=== PATIENT | male | born 1985 | race Caucasian/White ===

== ENCOUNTER 2018-09-28 02:46 | Inpatient (IN) ==
[2018-09-28] MEDS ORDERED: PROPOFOL IV EMULSION 10 MG/ML 100 ML VIAL IV ONE (06:22)
--- NOTE | 2018-09-28 06:29 | History & Physical Report ---
Date of Service September 28, 2018 Assessment & Plan (1) Overdose: Intentional overdose on Seroquel with EtOH abuse. Patient intubated for airway protection at OSH. Presently following some commands but overall uncooperative. EKG from OSH with sinus tachycardia, narrow QRS complexes, markedly prolonged QT interval at 663. Remainder of toxicology workup negative. * Continue supportive care, mechanical ventilation * Avoid QT prolonging medications * EKG * Psychiatry consultation when patient is extubated and interactive * Present on Admission?: Yes (2) ETOH abuse: Uncertain how much patient drinks. EtOH level 143 at OSH - reportedly consumed 10 beers prior to admission * Monitor for evidence of EtOH withdrawal * Present on Admission?: Yes (3) Anxiety: Per outpatient records patient is taking Celexa 40mg daily and Seroquel. * Hold these medications for now * Monitor EKG findings * Psychiatry consultation as above * (4) Depression: Plan as above. Holding Celexa in setting of acute overdose F/E/N - NSS at 125mL/hr x 1 liter, monitor electrolytes and replete as needed, NPO for now Ppx - Protonix, SCDs Code - Full Dispo - MICU History of Present Illness History obtained through documentation review. Patient unable to provide history. No family at bedside. Patient is a 33yo male with history of depression, anxiety and EtOH abuse. He presented to [facility] unresponsive s/p intentional overdose when he took a "handful of seroquel" after drinking 10 beers. He was transported via ambulance to [facility]. Vomit x 2 episodes en route to the hospital. Upon arrival to [facility] he was found to have pinpoint pupils, sonorous respirations and minimally responsive only to deep stimuli. Periods of apnea noted. He was intubated for airway protection. Transferred to [facility]. Medications administered at OSH: Narcan 0.4mg, Flumazenil, RSI, Propofol, Zosyn , Solumedrol 125mg, Sodium bicarbonate OSH Labs: WBC=9.1, Hg=14.1, Hct=40.3, Mlr=209 Nm=482 K=3.1 Uf=209 HCO3=21 BUN=9 Cr=1.2 PT=10.7 PTT=26 INR=1.09 Utox negative NxYF=485 Salicylate=3.[address] Head: No acute intracranial abnormality. CXR - ETT in place EKG=SInus tachycardia 120bpm, JB=827, QRS=80, JDl=170, no acute ischemia Past Med/Surg History Medical History Alcohol abuse Anxiety Depression Social History Current Living Situation: Other Current Living Situation Comment: unknown, no family present. pt intubated with sedation Smoking Status: Unknown if ever smoked Hx Alcohol Use: Yes Preferred Language: Unknown Review of Systems Unobtainable due to endotracheal tube Physical Exam 2 Physical Exam: General: patient intubated, sedated, following some commands, moving all extremities Skin: warm, dry, intact, no rashes or lesions HEENT: NC/AT, PERRL, anicteric sclera, conjunctiva without injection, external ear normal to inspection and nontender, nares patent, moist mucus membranes, dentition intact, ETT and OGT in place, no oropharyngeal lesions, neck supple, trachea midline, no LAD, no thyromegaly, no JVD Heart: +S1/S2, regular, tachycardic, no m/r/g Lungs: equal air entry bilaterally, no rales/rhonchi/wheezes Abd: +BS, soft, NT/ND, no masses/organomegaly/ascites Ext: warm, 2+ pulses in UE/LE bilaterally, no clubbing/cyanosis or edema Neuro: intubated, sedated, moving all extremities Results & Data Laboratory Results Ordered Diagnostic Findings CXR ordered ECG Additional Comments: EKG ordered Code Status & VTE Plan Code Status full VTE Prophylaxis Plan VTE Prophylaxis will be ordered: Yes Critical Care Time 45 Critical Care Time: Yes _ (1) Overdose Encounter type: initial encounter Injury intent: intentional self-harm Qualified Code(s): T50.902A - Poisoning by unspecified drugs, medicaments and biological substances, intentional self-harm, initial encounter (2) Depression Depression Type: major depressive disorder Major depression recurrence: recurrent Active/Remission status: currently active
[2018-09-28] MEDS ORDERED: ICU PROTOCOL FOR HYPERGLYCEMIA PRN (06:33)
[2018-09-28] MEDS ORDERED: fentaNYL citrate 100 MCG/2 ML VIAL ONE (06:38)
[2018-09-28] MEDS ORDERED: SODIUM CHLORIDE 0.9% 1000ML 1,000 ML IV SCH (06:45)
[2018-09-28] MEDS ORDERED: PROPOFOL 1,000 MG/100 ML VIAL IV SCH (07:00)
[2018-09-28] MEDS ORDERED: PATIENT'S HEIGHT AND/OR WEIGHT NEEDED SCH (07:00)
--- NOTE | 2018-09-28 07:17 | XRay Report ---
XR chest 1V portable CLINICAL HISTORY: f/u COMPARISON STUDY: No previous studies for comparison. FINDINGS: Endotracheal tube 2.5 cm above the luanne. Parenchymal infiltrate left base. Lungs otherwis e appear clear. Nasogastric tube within the stomach. IMPRESSION: 1. Endotracheal tube 2.5 cm above the luanne. 2. Infiltrate left base. 3. Nasogastric tube within the stomach. The above report was generated using voice recognition software. It may contain grammatical, syntax or spelling errors. Electronically signed by: Flex Lee M.D. 09/28/2018 7:16 AM
[2018-09-28 07:22] LABS: Hemoglobin 12.5 g/dL (14.0-18.0); Immature Granulocytes # (auto) 0.01 K/uL (0.00-0.02); Immature Granulocytes % (auto) 0.1 %; Lymphocytes # (auto) 0.45 K/uL (1.2-3.4); Lymphocytes % (auto) 5.8 %; Mean Corpuscular Hgb Conc 34.7 g/dL (32-36); Mean Corpuscular Volume 91.6 fL (80-100); Mean Platelet Volume 9.5 fL (7.4-10.4); Monocytes # (auto) 0.12 K/uL (0.11-0.59); Monocytes % (auto) 1.5 %; Neutrophils # (auto) 7.19 K/uL (1.4-6.5); Neutrophils % (auto) 92.6 %; Platelet Count 221 K/uL (130-400); RDW Coefficient of Variation 12.3 % (11.5-14.5); RDW Standard Deviation 41.8 fL (36.4-46.3); Red Blood Count 3.93 M/uL (4.7-6.1); White Blood Count 7.77 K/uL (4.8-10.8)
[2018-09-28 07:57] LABS: BUN Creatinine Ratio 10.7 (10-20); Calcium 8.2 mg/dl (8.5-10.1); Creatinine Clr Calc Pharmacy 142.5 ml/min; Est GFR (African American) 120.7; Est GFR (Non-African American) 104.2; Magnesium 2.1 mg/dl (1.8-2.4); Potassium 3.8 mmol/L (3.5-5.1)
[2018-09-28 07:58] LABS: Phosphorus 2.6 mg/dl (2.5-4.9)
[2018-09-28 09:12] LABS: Base Excess VBG 0.3 mEq/L; Oxygen Saturation VBG 97.2 %; pH VBG 7.4 (7.36-7.41)
[2018-09-28] MEDS ORDERED: INFLUENZA VIRUS QUAD VACCINE 0.5 ML SYR IM ONE (09:15)
[2018-09-28] MEDS ORDERED: INFLUENZA ADMINISTRATION CHARGE ONE (09:15)
--- NOTE | 2018-09-28 10:28 | Critical Care Consultation ---
Date of Consultation September 28, 2018 Supervising Physician Co-Signing Physician Notes Reason Critically Ill: 33-year-old male with intentional drug overdose in the setting of acute alcohol intoxication and intubation for combativeness PLAN: Neuro: Intentional drug overdose -Mental health consult Resp: Successful extubation this morning CV: Tachycardia Prolonged QTC -Resolved Fluids/Renal: Discontinuing supplemental fluids ID: Afebrile GI/Nutrition: Regular diet Heme: Low risk for DVT -Ambulate around room, sitter DVT prophylaxis: Ambulatory Endocrine: ICU hyperglycemia protocol Vascular access: Peripheral IVs Code Status: Full code Patient is medically cleared for evaluation by mental health I reviewed the outpatient medical record, salicylates were negative Tylenol is negative there is no high gap acidosis, patient reportedly took overdose of Seroquel however patient is alert and oriented and shows no ill effects of Seroquel at this time. Will repeat EKG as QTC was mildly prolonged. Update: Patient is medically cleared at 9:30 PM. I have discussed this with Dr. Sykes, patient is being involuntarily held on 302 for further psychiatric evaluation. During my evaluation the patient appears to be minimizing his alcohol consumption as well as the intentional drug overdose he reports that it was in an attempt to help him sleep however given the significant prolongation of the QTC that this is not due from 3-4 extra tablets of his Seroquel. He exhibits some high risk features of impulsivity which are concerning to me and I agree that the patient requires further evaluation by mental health. History of Present Illness Attending Physician: Jaswinder Yadav History is originally obtained from prior records patient is a 33-year-old male who was transferred from [facility] for an intentional overdose on Seroquel while he was intoxicated. He was brought to the emergency department and was combative requiring intubation to facilitate workup. They contacted poison control he was found to have a prolonged QTC, his alcohol level is elevated his salicylates and Tylenol were negative. He was transferred for further management. Following extubation I was able to obtain additional history from the patient and he reports that he recently finished alcohol rehabilitation however he has relapsed and was drinking on renato as well as [place] ' Renato and then drank for the last 3 days. He was intoxicated had conflict with his girlfriend and reportedly took 3 or 4 extra sleeping pills and this concerned his girlfriend that prompted her to take the patient to the emergency room for further evaluation. The patient has a prior history of suicide attempt in a previous relationship for which he reportedly sliced his wrist. He denies any other significant medical history Allergies Allergy/AdvReac Type Severity Reaction Status Date / Time No Known Allergies Allergy Unverified 09/28/18 10:30 Home Medications Home Medications Medication Instructions Recorded Confirmed Type citalopram 20 mg PO BID 09/28/18 09/28/18 History clonidine HCl 0.1 mg PO BID 09/28/18 09/28/18 History quetiapine [Seroquel] 400 mg PO HS 09/28/18 09/28/18 History Patient History Medical History Alcohol abuse Anxiety Depression Social History Current Living Situation: Other Current Living Situation Comment: unknown, no family present. pt intubated with sedation Smoking Status: Unknown if ever smoked Hx Alcohol Use: Yes Communication Ability: Effective Review of Systems Unable to obtain secondary to intubation Physical Exam 2 Vital Signs (Past 24 Hours): Last Vital Signs Temp 36.7 C 09/28/18 06:33 Pulse 87 09/28/18 07:20 Resp 12 09/28/18 09:20 BP 122/77 09/28/18 06:33 Pulse Ox 98 09/28/18 07:20 General: A obese young male who appears his stated age I have reviewed the recorded vital signs Neurological: RASS score: -2, Moves all 4 extremities, Psychological: Glascow Coma Scale: Eyes: 3 voice, Verbal 1T, Motor 5, Total 9T not following complex commands Eyes: Pupils are equal, round and reactive to light, anicteric sclera. Symmetrical lids. HENT: Oropharynx Clear/ Oropharynx obscured by endotracheal tube, dry mucous membranes. Neck: Supple. Symmetric. trachea midline. No thyromegaly. Cardiovascular: Normal peripheral perfusion. Distal pulses and capillary refill intact. No JVD. Respiratory: Respirations are non-labored, no accessory muscle use. Breath sounds are equal. Gastrointestinal: Soft. Non-distended. Lymphatic: No cervical lymphadenopathy. Musculoskeletal: No deformity. No clubbing nor cyanosis. Results & Data Laboratory Results 09/28/18 09/28/18 09/28/18 Range/Units 12:30 10:30 09:01 WBC (4.8-10.8) K/uL RBC (4.7-6.1) M/uL Hgb (14.0-18.0) g/dL Hct (42-52) % MCV (80-100) fL MCH (25-34) pg MCHC (32-36) g/dL RDW Std Deviation (36.4-46.3) fL RDW Coeff of Lizzy (11.5-14.5) % Plt Count (130-400) K/uL MPV (7.4-10.4) fL Immature Gran % (Auto) % Neut % (Auto) % Lymph % (Auto) % [place] % (Auto) % Eos % (Auto) % Baso % (Auto) % Immature Gran # (Auto) (0.00-0.02) K/uL Neut # (Auto) (1.4-6.5) K/uL Lymph # (Auto) (1.2-3.4) K/uL [place] # (Auto) (0.11-0.59) K/uL Eos # (Auto) (0-0.5) K/uL Baso # (Auto) (0-0.2) K/uL VBG pH 7.40 (7.36-7.41) VBG pCO2 42 (38-50) mmHg VBG pO2 94 mmHg VBG HCO3 25 mmol/L VBG O2 Saturation 97.2 % VBG Base Excess 0.3 mEq/L Barometric Pressure 733.0 mm/Hg Sodium (136-145) mmol/L Potassium (3.5-5.1) mmol/L Chloride (98-107) mmol/L Carbon Dioxide (21-32) mmol/L Anion Gap (3-11) BUN (7-18) mg/dl Creatinine (0.6-1.4) mg/dl Est Cr Clr Drug Dosing ml/min Est GFR ( Amer) Est GFR (Non-Af Amer) BUN/Creatinine Ratio (10-20) Glucose (70-99) mg/dl POC Glucose 231 H (70-99) Calcium (8.5-10.1) mg/dl Phosphorus (2.5-4.9) mg/dl Magnesium (1.8-2.4) mg/dl Nasal Screen MRSA (PCR) Uninterpretable (Negative) 09/28/18 09/28/18 Range/Units 07:15 07:15 WBC 7.77 (4.8-10.8) K/uL RBC 3.93 L (4.7-6.1) M/uL Hgb 12.5 L (14.0-18.0) g/dL Hct 36.0 L (42-52) % MCV 91.6 (80-100) fL MCH 31.8 (25-34) pg MCHC 34.7 (32-36) g/dL RDW Std Deviation 41.8 (36.4-46.3) fL RDW Coeff of Lizzy 12.3 (11.5-14.5) % Plt Count 221 (130-400) K/uL MPV 9.5 (7.4-10.4) fL Immature Gran % (Auto) 0.1 % Neut % (Auto) 92.6 % Lymph % (Auto) 5.8 % [place] % (Auto) 1.5 % Eos % (Auto) 0.0 % Baso % (Auto) 0.0 % Immature Gran # (Auto) 0.01 (0.00-0.02) K/uL Neut # (Auto) 7.19 H (1.4-6.5) K/uL Lymph # (Auto) 0.45 L (1.2-3.4) K/uL [place] # (Auto) 0.12 (0.11-0.59) K/uL Eos # (Auto) 0.00 (0-0.5) K/uL Baso # (Auto) 0.00 (0-0.2) K/uL VBG pH (7.36-7.41) VBG pCO2 (38-50) mmHg VBG pO2 mmHg VBG HCO3 mmol/L VBG O2 Saturation % VBG Base Excess mEq/L Barometric Pressure mm/Hg Sodium 139 (136-145) mmol/L Potassium 3.8 (3.5-5.1) mmol/L Chloride 109 H (98-107) mmol/L Carbon Dioxide 22 (21-32) mmol/L Anion Gap 8.0 (3-11) BUN 10 (7-18) mg/dl Creatinine 0.96 (0.6-1.4) mg/dl Est Cr Clr Drug Dosing 142.5 ml/min Est GFR ( Amer) 120.7 Est GFR (Non-Af Amer) 104.2 BUN/Creatinine Ratio 10.7 (10-20) Glucose 132 H (70-99) mg/dl POC Glucose (70-99) Calcium 8.2 L (8.5-10.1) mg/dl Phosphorus 2.6 (2.5-4.9) mg/dl Magnesium 2.1 (1.8-2.4) mg/dl Nasal Screen MRSA (PCR) (Negative) ECG Additional Comments: Multiple EKGs were reviewed his QTC continued to decrease, the noted increase is artifactual secondary to increased rate which were due to periods of anxiety. Particularly this occurred when he was confronted with being petitioned under the 302 statute. Eventually an EKG was obtained with a lower heart rate and the QTC was 452 and the patient was medically cleared.
[2018-09-28] MEDS ORDERED: PANTOprazole 40 MG in SYRINGE 0 ML IV SCH (11:00)
[2018-09-28] MEDS: PATIENT'S ALLERGY INFO NEEDS ENTERED SCH ×3 (11:13→14:39)
[2018-09-28] MEDS ORDERED: LORazepam 2 MG/4 ML VIAL IV STA (14:32)
[2018-09-28] MEDS ORDERED: LORazepam 2 MG/4 ML VIAL ONE (14:33)
--- NOTE | 2018-09-28 14:36 | Psychiatric Consultation ---
Date of Consultation September 28, 2018 Impression / Recommendations Impression 33 yo CM with h/o Bipolar d/o and anxiety. Per chart he was admitted to ICU, intubated and sedated, s/p intentional overdose on seroquel while intoxicated on alcohol. This was reported to be in the context of an arguement with his girlfriend on the night of 09/27/18. Patient was irritable, evasive and seemed to be minimizing his OD attempt. He refused to cooperate and agree to collateral from his girlfriend. He has a history of impulsive behavior and attempting suicide after a break up in the past. Given his QTC of 633 on admission elevated HR and needing intubation to protect airways, likely he took more than a few pills of seroquel. Patient ws intoxicated as well and showing poor insight and judgement. Patient demanded to leave hospital and remains a risk of harm to himself and others and will file 302 petition. Discussed case with Dr. Hendricks who will fill out section of petition. He will need psychiatric admission once medically cleared. Inventory Assets Strengths: in a relationship, access to care Needs: meds, therapy, inpatient admission Risk Factors Assessment Male: Yes : Yes Health Problems: No Mental Health Diagnoses: Yes Substance Use Disorders: Yes Previous Attempt: Yes Previous Psychiatric Hospitalization: Yes Protective Factors Assessment Alevism Beliefs: No : No Responsible for Young Children: Yes CPT Code 43485 Psych History Chief Complaint "I'm fine" History of Present Illness 33 yo CM with h/o Bipolar d/o and anxiety. Per chart he was admitted to ICU, intubated and sedated, s/p intentional overdose on seroquel while intoxicated on alcohol. This was reported to be in the context of an arguement with his girlfriend on the night of 09/27/18. Upon evaluation, patient reports "I took a bunch of seroquels, maybe 4" and states she doesn't remember that he was suicidal. He states he got into an arguement with his girlfriend and left the house, states he had been drinking a lot this past couple days, and came back to the house and was took seroquel pills. He became irritable and stated "stop asking me these questions, I'm trying to be honest and I don't remember". Asked patient to allow collateral from girlfriend and he states "no, I don't want you talking to her". He picked up the phone and tried calling her a few times during the conversation. He stated he wanted to leave. Patient was irritable and evasive during the interview. Below autopopulated from chart: History obtained through documentation review. Patient unable to provide history. No family at bedside. Patient is a 33yo male with history of depression, anxiety and EtOH abuse. He presented to [facility] unresponsive s/p intentional overdose when he took a "handful of seroquel" after drinking 10 beers. He was transported via ambulance to [facility]. Vomit x 2 episodes en route to the hospital. Upon arrival to [facility] he was found to have pinpoint pupils, sonorous respirations and minimally responsive only to deep stimuli. Periods of apnea noted. He was intubated for airway protection. Transferred to [facility]. Medications administered at OSH: Narcan 0.4mg, Flumazenil, RSI, Propofol, Zosyn , Solumedrol 125mg, Sodium bicarbonate OSH Labs: WBC=9.1, Hg=14.1, Hct=40.3, Msx=826 Bq=735 K=3.1 Vb=903 HCO3=21 BUN=9 Cr=1.2 PT=10.7 PTT=26 INR=1.09 Utox negative JwUF=071 Salicylate=3.[address] Head: No acute intracranial abnormality. CXR - ETT in place EKG=SInus tachycardia 120bpm, LU=300, QRS=80, TLo=252, no acute ischemia Past Psychiatric History Previous Psych History: bipolar d/o Current Psychiatric Diagnosis: bipolar disorder Previous Psych Admissions: yes History of Previous Suicide Attempt: Yes Allergies Allergy/AdvReac Type Severity Reaction Status Date / Time No Known Allergies Allergy Unverified 09/28/18 10:30 Home Medications Home Medications Medication Instructions Recorded Confirmed Type citalopram 20 mg PO BID 09/28/18 09/28/18 History clonidine HCl 0.1 mg PO BID 09/28/18 09/28/18 History quetiapine [Seroquel] 400 mg PO HS 09/28/18 09/28/18 History Patient History Medical History Alcohol abuse Anxiety Depression Social History Current Living Situation: Other Current Living Situation Comment: unknown, no family present. pt intubated with sedation Smoking Status: Unknown if ever smoked Hx Alcohol Use: Yes Communication Ability: Effective Physical Exam Psychiatric A+Ox3, euthymic affect Apperance: appropriately dressed Eye Contact: + fair eye contact Motor Behavior: no abnormal motor movements Speech: normal rate/rhythm/volume of speech Affect: + irritable affect and mood congruent with affect Thought Process: goal directed thought process Thought Content: not paranoid and no delusions Suicidal Thoughts: denies suicidal thoughts Homicidal Thoughts: denies homicidal thoughts Hallucinations: no auditory hallucinations and no visual hallucinations Cognition: attention grossly intact Estimated Intelligence: average estimated intelligence Insight: + poor insight Judgement: + poor judgement Vital Signs (Past 24 Hours) Last Vital Signs Temp 36.9 C 09/28/18 12:02 Pulse 124 H 09/28/18 13:00 Resp 19 09/28/18 13:00 BP 127/76 09/28/18 13:00 Pulse Ox 95 09/28/18 13:00
[2018-09-28] MEDS ORDERED: NICOTINE 21 MG/24 HR TDSY TD SCH (15:00)
[2018-09-28] MEDS ORDERED: CITALOPRAM 20 MG TAB PO ONE (17:00)
[2018-09-28] MEDS ORDERED: PROPRANOLOL HCL 10 MG TAB PO ONE (17:00)
--- NOTE | 2018-09-28 21:53 | Discharge Summary ---
Date of Service September 28, 2018 Admission HPI Per Admitting Provider 33 yo CM with h/o Bipolar d/o and anxiety. Per chart he was admitted to ICU, intubated and sedated, s/p intentional overdose on seroquel while intoxicated on alcohol. This was reported to be in the context of an arguement with his girlfriend on the night of 09/27/18. Upon evaluation, patient reports "I took a bunch of seroquels, maybe 4" and states she doesn't remember that he was suicidal. He states he got into an arguement with his girlfriend and left the house, states he had been drinking a lot this past couple days, and came back to the house and was took seroquel pills. He became irritable and stated "stop asking me these questions, I'm trying to be honest and I don't remember". Asked patient to allow collateral from girlfriend and he states "no, I don't want you talking to her". He picked up the phone and tried calling her a few times during the conversation. He stated he wanted to leave. Patient was irritable and evasive during the interview. Below autopopulated from chart: History obtained through documentation review. Patient unable to provide history. No family at bedside. Patient is a 33yo male with history of depression, anxiety and EtOH abuse. He presented to [facility] unresponsive s/p intentional overdose when he took a "handful of seroquel" after drinking 10 beers. He was transported via ambulance to [facility]. Vomit x 2 episodes en route to the hospital. Upon arrival to [facility] he was found to have pinpoint pupils, sonorous respirations and minimally responsive only to deep stimuli. Periods of apnea noted. He was intubated for airway protection. Transferred to [facility]. Medications administered at OSH: Narcan 0.4mg, Flumazenil, RSI, Propofol, Zosyn , Solumedrol 125mg, Sodium bicarbonate OSH Labs: WBC=9.1, Hg=14.1, Hct=40.3, Ilr=755 Wn=763 K=3.1 Ym=937 HCO3=21 BUN=9 Cr=1.2 PT=10.7 PTT=26 INR=1.09 Utox negative FfXZ=352 Salicylate=3.[address] Head: No acute intracranial abnormality. CXR - ETT in place EKG=SInus tachycardia 120bpm, FW=872, QRS=80, XNj=977, no acute ischemia Discharge Data Consultations 09/28/18 06:33 Consult Case Management - Discharge Planning Routine Consult Gem Technician Routine 09/28/18 10:29 Consult Psychiatry Routine Hospital Course (1) Overdose: Initial Seroquel overdose with QTC prolongation which has since been corrected. Evaluated from a psychiatric standpoint and at this point is medically cleared for discharge from hospital standpoint to be admitted to 3 S. (2) ETOH abuse: No overt symptoms of withdrawal at this point. (3) Anxiety: To be discussed on 3 S. admission. (4) Depression: To be discussed on 3 S. admission. Discharge Instructions To be taken directly to 3 S. for involuntary admission. Supervising Physician Co-Signing Physician Notes I have personally evaluated and examined this patient. I agree with assessment and plan of Madelyn Burrell PA-C.
[2018-09-29] MEDS ORDERED: CITALOPRAM 20 MG TAB PO SCH (09:00)
--- NOTE | 2018-10-05 11:12 | Discharge Summary ---
Date of Service September 28, 2018 Admission HPI Per Admitting Provider 33 yo CM with h/o Bipolar d/o and anxiety. Per chart he was admitted to ICU, intubated and sedated, s/p intentional overdose on seroquel while intoxicated on alcohol. This was reported to be in the context of an arguement with his girlfriend on the night of 09/27/18. Upon evaluation, patient reports "I took a bunch of seroquels, maybe 4" and states she doesn't remember that he was suicidal. He states he got into an arguement with his girlfriend and left the house, states he had been drinking a lot this past couple days, and came back to the house and was took seroquel pills. He became irritable and stated "stop asking me these questions, I'm trying to be honest and I don't remember". Asked patient to allow collateral from girlfriend and he states "no, I don't want you talking to her". He picked up the phone and tried calling her a few times during the conversation. He stated he wanted to leave. Patient was irritable and evasive during the interview. Below autopopulated from chart: History obtained through documentation review. Patient unable to provide history. No family at bedside. Patient is a 33yo male with history of depression, anxiety and EtOH abuse. He presented to [facility] unresponsive s/p intentional overdose when he took a "handful of seroquel" after drinking 10 beers. He was transported via ambulance to [facility]. Vomit x 2 episodes en route to the hospital. Upon arrival to [facility] he was found to have pinpoint pupils, sonorous respirations and minimally responsive only to deep stimuli. Periods of apnea noted. He was intubated for airway protection. Transferred to [facility]. Medications administered at OSH: Narcan 0.4mg, Flumazenil, RSI, Propofol, Zosyn , Solumedrol 125mg, Sodium bicarbonate OSH Labs: WBC=9.1, Hg=14.1, Hct=40.3, Tgg=796 Kl=074 K=3.1 Rj=820 HCO3=21 BUN=9 Cr=1.2 PT=10.7 PTT=26 INR=1.09 Utox negative KgLZ=509 Salicylate=3.[address] Head: No acute intracranial abnormality. CXR - ETT in place EKG=SInus tachycardia 120bpm, IL=974, QRS=80, DVi=028, no acute ischemia Discharge Data Allergies Allergy/AdvReac Type Severity Reaction Status Date / Time No Known Allergies Allergy Unverified 09/28/18 10:30 Consultations 09/28/18 06:33 Consult Case Management - Discharge Planning Routine Consult [employer] Police Officer Routine 09/28/18 10:29 Consult Psychiatry Routine Hospital Course (1) Overdose: Intentional overdose on Seroquel with EtOH abuse. Patient intubated for airway protection at OSH. Presently following some commands but overall uncooperative. EKG from OSH with sinus tachycardia, narrow QRS complexes, markedly prolonged QT interval at 663. Remainder of toxicology workup negative. * Continue supportive care, mechanical ventilation * Avoid QT prolonging medications * EKG * Psychiatry consultation when patient is extubated and interactive * (2) ETOH abuse: Uncertain how much patient drinks. EtOH level 143 at OSH - reportedly consumed 10 beers prior to admission * Monitor for evidence of EtOH withdrawal * (3) Anxiety: Per outpatient records patient is taking Celexa 40mg daily and Seroquel. * Hold these medications for now * Monitor EKG findings * Psychiatry consultation as above * (4) Depression: Plan as above. Holding Celexa in setting of acute overdose F/E/N - NSS at 125mL/hr x 1 liter, monitor electrolytes and replete as needed, NPO for now Ppx - Protonix, SCDs Code - Full Dispo - MICU Discharge Plan Discharge Items Patient Disposition: Transfer [facility] Fac Reason For Visit: SERAQUEL OD; INTUBATION Follow-up/Referrals: PCP,NO [Primary Care Provider] - Prescriptions: No Action aripiprazole [Abilify] 5 mg Tablet 5 mg PO BID 30 Days Qty: 60 RF: 0 clonidine HCl 0.1 mg Tablet 0.1 mg PO BID 30 Days Qty: 60 RF: 0 hydroxyzine HCl 25 mg Tablet 100 mg PO HSZ PRN (Reason: sleep) 30 Days Qty: 30 RF: 0 Stand-Alone Forms: [facility] Discharge Orders: Discharge Order (Routine); Ordered 09/28/18 Ordered By: Sae Burrell Admission Data Admit Date/Time: 09/28/18 06:19 Attending Provider: Jaswinder Yadav Admit Provider: Annalise Luis Primary Care Provider: PCP,NO Other Providers: Cristian Hendricks ; Sae Burrell Service: Intensive Care Unit Other Interventions: Discharge Summary Assessment (RN) Last Done: 09/28/18 22:08 DC Date/Time DO NOT enter until pt leaves facility: 09/28/18 22:00
== END 2018-09-28 22:00 | DRG 918 ==
LOC: 1E 06:19 → SUATTDRO 06:19